=== PATIENT | female | born 1960 | race Caucasian/White ===

== ENCOUNTER 2016-09-08 19:05 | Emergency (ER) | payer BC ==
[~2016-09-08 19:05] MED LIST: IBUP800T23 PO
[2016-09-08 19:08] VITALS: BP 123/74; PULSE 113; RESP 16; TEMP 98; O2SAT 95
== END 2016-09-08 20:12 | disposition left against medical advice (07) ==
LOC: NED 19:05
DX: F41.9 Anxiety disorder, unspecified (principal); Z53.21 Procedure and treatment not carried out due to patient leaving prior to being seen by health care provider
CPT/HCPCS: 99281